=== PATIENT | female | born 1970 | race Caucasian/White ===

== ENCOUNTER 2020-02-23 08:19 | Outpatient (REF) | payer BC, SELFPAY | END 2020-02-23 08:20 | disposition home or self-care (01) | LOC: HO.LAB 08:19 | PROVIDERS: PCP Physician Assistant Medical; Visit Provider Internal Medicine | DX: Z20.828 Contact with and (suspected) exposure to other viral communicable diseases (principal) | CPT/HCPCS: 87635 ==

== ENCOUNTER → 2020-08-01 10:31 | Outpatient (REF) | payer BC, SELFPAY ==
--- NOTE | 2020-08-01 10:38 | ECG_ITS ---
Test Reason : Z79.889 Blood Pressure : / mmHG Vent. Rate : 100 BPM Atrial Rate : 100 BPM P-R Int : 168 ms QRS Dur : 084 ms QT Int : 344 ms P-R-T Axes : 072 -23 045 degrees QTc Int : 443 ms Normal sinus rhythm Biatrial enlargement Abnormal ECG When compared with ECG of 13-JAN-2017 16:40, No significant change was found Referred By: Jessica Amezcua Electronically Signed By:HUNTER TOBIAS
== END ==
LOC: HO.CARD 10:31
PROVIDERS: PCP Physician Assistant Medical; Visit Provider Clinical Nurse Specialist Psychiatric/Mental Health
DX: Z79.899 Other long term (current) drug therapy (principal)
CPT/HCPCS: 93005

== ENCOUNTER → 2023-02-02 15:14 | Outpatient (REF) | payer BC, SELFPAY ==
--- NOTE | 2023-02-02 15:20 | ECG_ITS ---
Test Reason : artrial enlargement Blood Pressure : / mmHG Vent. Rate : 109 BPM Atrial Rate : 109 BPM P-R Int : 176 ms QRS Dur : 078 ms QT Int : 326 ms P-R-T Axes : 075 -15 052 degrees QTc Int : 439 ms Sinus tachycardia Biatrial enlargement Abnormal ECG When compared with ECG of 01-AUG-2020 10:44, No significant change was found Referred By: Jessica Amezcua Electronically Signed By:ADAMA SMITH
== END ==
LOC: HO.CARD 15:14
PROVIDERS: PCP Physician Assistant Medical; Visit Provider Clinical Nurse Specialist Psychiatric/Mental Health
DX: Z79.899 Other long term (current) drug therapy (principal)
CPT/HCPCS: 93005